=== PATIENT | male | born 1940 | race Caucasian/White ===

== ENCOUNTER 2018-07-11 09:13 | Inpatient (IN) | payer MEDICARE, OTHER ==
[2018-07-11] MEDS ORDERED: Norepinephrine 8 MG/0.9% NS 250 ML ONE (09:34)
[2018-07-11 10:07] LABS: Actual Bicarbonate (HCO3a) 22.6 mEq/L (22-28); Analyzer IN Cardio ER; Base Excess (BEa) -4.4 mEq/L (-2.0 to +3.0); CO2 Tension 50.2 mmHg (35.0-45.0); Carboxyhemoglobin (COHb) 0.3 gm% (0.0-3.0); Hemoglobin (Hb) 10.2 g/dL (14.0-18.0); O2 Tension (PaO2) 70.7 mmHg (> 60.0); Potassium - ABG Lab 3.04 mmol/L (3.70-5.30); pH, Arterial 7.27 (7.35-7.45)
[2018-07-11 10:10] LABS: Puncture Site LB
--- NOTE | 2018-07-11 10:16 | RAD ---
EXAM: CHEST ONE VIEW HISTORY: Pulseless and apneic at 0700 hours at longterm. COMPARISON: None FINDINGS: Endotracheal tube is noted in place with the tip overlying the T4 vertebral body and above the level of the indy. Nasogastric tube is noted in place, but the tube is coiled overlying the upper thoracic esophagus. The tip extends superiorly but is not imaged on this exam. Postsurgical changes related to CABG are noted. Pacing pads overlie the chest. The cardiac silhouette and pulmonary vasculature are within normal limits. There is lucency seen in t he upper lung zones which could be related to bullous emphysematous changes. The lungs otherwise appear clear. No obvious pneumothorax is seen. There is no consolidation or pleural fluid noted. Calcified right paramediastinal and right hilar lymph nodes are seen. Vascular calcifications are see n in the thoracic aorta. The osseous structures are intact. IMPRESSION: 1. No acute cardiopulmonary process. 2. Endotracheal tube noted in place and above the level of the indy. 3. Nasogastric tube noted in place, and the nasogastric tube is coiled overlying the upper esophagus with the the tube extending superiorly, but the tip is not imaged.
--- NOTE | 2018-07-11 10:53 | CT ---
CT BRAIN: DATE: 07/11/2018. PROVIDED CLINICAL HISTORY: Status post cardiac arrest. FINDINGS: No comparisons. The ventricular system appears normal in size and morphology. There is no evidence for intracranial hemorrhage or mass effect. Chronic microvascular ischemic changes are seen involvin g the cerebral white matter. There is ectasia of the basilar artery diffusely. Vascular calcificati ons are seen. A nasogastric tube is partially visualized with what appears to be the tip of the cath eter in the region of the nasopharynx associated with nasopharyngeal fluid density. When correlating with concurrently performed chest radiograph, this appears to represent the terminal extent of the e nteric catheter within the nasopharynx. IMPRESSION: 1. No evidence for intracranial hemorrhage or mass effect. 2. Enteric catheter positioning as above. POS: TPC
--- NOTE | 2018-07-11 10:59 | CT ---
CT CERVICAL SPINE WITHOUT CONTRAST: COMPARISON: None. HISTORY: Ongoing CPR. Found in bed at assisted pulseless and apneic. The patient was intubated. Possibl e traumatic intubation. TECHNIQUE: Multiple contiguous axial images were obtained in a CT of the cervical spine without contrast. Sagit gasper and coronal reformats were performed. FINDINGS: The vertebral bodies demonstrate normal height and alignment without fracture or subluxation. The in tervertebral disks are narrowed with small surrounding osteophytes. No prevertebral soft tissue swel ling is seen. The posterior facets are well aligned. Normal alignment of the skull base with the cervical spine is seen. No prevertebral soft tissue swelling is seen. An NG tube and endotracheal tube are partially visuali zed. IMPRESSION: No evidence of acute osseous abnormality of the cervical spine. POS: TPC
[2018-07-11 11:09] LABS: CKMB 2.9 ng/mL (0-6.6)
[2018-07-11] MEDS: Sodium Chloride 0.9% 1,000 ML IV SCH ×2 (12:00→21:43)
[2018-07-11] MEDS: EPINEPHrine 4 MG in Dextrose 5% in Water 250 ML IV SCH ×3 (12:51→21:47)
[2018-07-11 12:54] VITALS: BMI 16.4
[2018-07-11] MEDS: Norepinephrine 8 MG/0.9% NS 250 ML IVPB SCH ×3 (13:05→21:53)
[2018-07-11 13:33] LABS: Troponin I 0.061 ng/mL (< 0.028)
--- NOTE | 2018-07-11 15:01 | HP ---
PRIMARY CARE PROVIDER: Dr. Bandar Chang. CHIEF COMPLAINT: Unresponsive. HISTORY OF PRESENT ILLNESS: Mr. Bundy is an 78-year-old gentleman, who was seen at [facility] on July 11, 2018, following transfer from emergency room at [place]. He lives in a senior living. He was reportedly found pulseless and apneic at 7: 00 a.m. CPR was performed. He was intubated and sent to the emergency room. The patient is currently unable to provide any history. Some history was obtained from his who was tearful at times. The patient reportedly had coronary artery bypass graft surgery last year and since then has been needing rehabilitation. REVIEW OF SYSTEMS: Could not be completed. PAST MEDICAL HISTORY: Coronary artery bypass graft, pneumothorax, gastroesophageal reflux disease, urinary retention, dyslipidemia, hypertension, asthma, COPD, and peripheral vascular disease. PAST SURGICAL HISTORY: Right hip surgery and coronary artery bypass graft x3. FAMILY HISTORY: Could not be obtained. SOCIAL HISTORY: The patient smokes 2 packs of cigarettes a day. Occasional alcohol use. No recreational drug use. CODE STATUS: The patient's code status was discussed by critical care physician with the patient's . The patient is now DNAR. ALLERGIES: NO KNOWN DRUG ALLERGIES. CURRENT MEDICATIONS: Could not be obtained. PHYSICAL EXAMINATION: GENERAL: On examination, Mr. Bundy is intubated and mechanically ventilated. VITAL SIGNS: Blood pressure is 133/71, pulse 46, respiratory rate 20. Critical temperature is 88.2 degrees Fahrenheit. Oxygen saturation is 99% on ventilator. EYES: No scleral icterus. No conjunctival pallor. ENT: Endotracheal tube present, dry mucosal membranes. NECK: No cervical lymphadenopathy. RESPIRATORY: Muscles of breathing are not active. Chest wall movements are symmetric bilaterally. Lung examination reveals clear lung plasencia bilaterally. CARDIOVASCULAR: S1 and S2 are heard, bradycardic and regular. Peripheral pulses feeble. ABDOMEN: Soft, nontender, bowel sounds heard. NEUROLOGIC: Full neurologic examination was not possible secondary to the patient's noncooperation. Pupils are 5 mm bilaterally, very little response to light. No facial droop. No spontaneous limb movements. MUSCULOSKELETAL: No spontaneous movement of extremities. SKIN: No rashes or subcutaneous nodules. PSYCHIATRIC: Unable to assess mood, affect, or orientation to person, place, or time. LABORATORY DATA: Mr. Bundy's labs and investigations were reviewed. Electrocardiogram shows sinus bradycardia, no ST changes to suggest an acute coronary syndrome. Chest x-ray does not show any pulmonary infiltrates. Noncontrast CT scan of the brain did not show any evidence for intracranial hemorrhage or mass effect. Cervical spine CT did not show evidence of acute osseous abnormality of the cervical spine. Arterial blood gases show pH 7.27, pCO2 of 50, and pO2 of 90. Lactic acid is elevated at 9.3. Troponin I is indeterminate at 0.061. ASSESSMENT AND PLAN: Mr. Bundy was seen at [facility] on July 11, 2018. His problem list includes: 1. Acute respiratory failure: Secondary to cardiac arrest. He is currently intubated and mechanically ventilated. He is also hypothermic and on warming protocol. He will be admitted to the critical care unit. His prognosis is poor. After discussion with pulmonary and critical care physician, his has confirmed his resuscitation status as DNAR. 2. Cardiac arrest: Etiology unclear, could be secondary to coronary artery disease. The patient's is currently awaiting the arrival of children from out of town, at which point the decision will likely be made towards terminal extubation. LEVEL OF RISK: Moderate. LEVEL OF COMPLEXITY: Moderate. Job ID: [id number] MTDD
[2018-07-11] MEDS ORDERED: Levothyroxine 100 MCG SDV IVP SCH (17:00)
[2018-07-11] MEDS ORDERED: Vancomycin HCl 1 GM in Premix Bag 1 BAG IVPB SCH (17:00)
[2018-07-11 18:02] LABS: Free T4 (Free Thyroxine) 1.17 ng/dL (0.70-1.48); Thyroid Stimulating Hormone 7.6338 uIU/mL (0.35-4.94)
--- NOTE | 2018-07-11 18:39 | CON ---
DATE OF CONSULTATION: 07/11/2018 CONSULTING PHYSICIAN: Mark Strong MD REASON FOR CONSULTATION: Critical care management. The following encompassed 70 minutes of critical care time. HISTORY OF PRESENT ILLNESS: The patient is an 78-year-old half-way resident, who was found unresponsive at the half-way today. At 7:40 a.m., he was intubated by EMS staff, given ketamine and rocuronium for that. He was transported to the [facility], where he was stabilized and later flown here by [facility] to [place]. He is currently intubated on mechanical ventilation. He is on Levophed and epinephrine drip. History was obtained from talking to his . PAST MEDICAL HISTORY: 1. Severe COPD. 2. Coronary artery disease, requiring bypass surgery about 8 months ago. 3. Failure to thrive. He basically has never returned home after the bypass surgery and has lost about 50 pounds of weight. 4. Prostatic hypertrophy. PAST SURGICAL HISTORY: Coronary artery bypass grafting surgery. MEDICATIONS: Prior to admission, 1. Acidophilus one tablet 2 times daily. 2. Albuterol nebs every 6 hours as needed. 3. Aluminum hydroxide gel suspension as needed as antacid. 4. Aspirin daily. 5. Atrovent 1 neb orally every 24 hours as needed. 6. Cordarone 200 mg twice daily for atrial fibrillation. 7. Finasteride 5 mg daily. 8. Lipitor 20 mg daily. 9. Marinol 2.5 mg nightly. 10. Melatonin at night for sleep. 11. Metoprolol 25 mg twice daily. 12. Pepcid 20 mg twice daily. 13. Tamsulosin 0.4 mg nightly. 14. Theragran one daily. 15. Numerous p.r.n. medications. SOCIAL HISTORY: Long-term smoker, has not smoked since his surgery last fall. Formally consumed alcohol, but does not do that anymore. Does not use illicit drugs. He is retired. ALLERGIES: NONE. REVIEW OF SYSTEMS: The patient is basically unable to perform any activities of daily living on his own. He has been in the half-way for the last several months. I cannot obtain any review of systems from the patient as he is unresponsive. PHYSICAL EXAMINATION: VITAL SIGNS: Temperature 88.5, pulse 45, blood pressure 115/51, O2 sat 97%, and respiratory rate 20. NEUROLOGIC: This exam was done over 3 hours since he received last paralytic. His pupils are 3 mm, unreactive. He has no gag. He has no withdrawal of pain. He has no spontaneous respirations. Of note, however, this exam was done while his temperature was 88.5 degrees. HEENT: Remarkable for bitemporal wasting. NECK: No adenopathy, JVD or bruits. CARDIAC: S1 and S2, bradycardic, without audible murmur. LUNGS: Clear with a prolonged expiratory phase. ABDOMEN: Soft and nontender. No hepatosplenomegaly. EXTREMITIES: No clubbing, cyanosis or edema. SKIN: Petechiae in his feet region. LABORATORY DATA: ABG, pH 7.27, pCO2 50, pO2 of 70, on SIMV rate of 16, tidal volume 450, PEEP 5, pressure support 10, and FiO2 100%. Sodium 142, potassium 3.9, chloride 113, CO2 of 30, BUN 27, creatinine 1.4, glucose 223, and albumin 2.6. EKG shows sinus bradycardia with AV block. Chest x-ray shows hyperinflation without evidence of mass, effusion or infiltrate. ET tube is in good position. CBC, white blood cell count 11.8, hematocrit 24.8, hemoglobin 8.0, and platelet count 115. CT of the head, I does not see any acute findings. ASSESSMENT: 1. This is an 78-year-old male, who was found unresponsive at the half-way and I suspect he had been in an arrest situation prior to paramedics arriving. It appears by his body temperature that he has been down for quite some time, and they were very jose to have a return of spontaneous circulation. Right now, his neurologic exam shows no brain activity. However, this has to be taken with the knowledge that his temperature is currently 88.5. The reason for the arrest is not clear. It does not appear to be a primary cardiac event. I suspect that it could be chronic obstructive pulmonary disease or some other assault such as ischemic bowel, etc. 2. Underlying severe chronic obstructive pulmonary disease. 3. Acute respiratory failure, requiring mechanical ventilation. PLAN: I spoke with the patient's at the bedside. She was quite realistic in terms of his prognosis. She says that he has been doing extremely poorly ever since his coronary bypass grafting surgery, and she said he is at the point in life or he is practically given up. She understands that he may not rally from this. She did ask me to put DNR on the chart. She is waiting for his children to come. We will support him with epinephrine and norepinephrine for his pulse. We will try to re-warm him to about 96 degrees. DNAR order has been put on the chart. Prognosis is extremely poor. LEVEL OF ACUITY: High. PATIENT STATUS: Critical. EXPECTED OUTCOME: Terminal. Job ID: [id number]
[2018-07-11] MEDS: Cefepime 1 GM in Sodium Chloride 0.9% 100 ML IVPB SCH (21:39)
[2018-07-12] MEDS: EPINEPHrine 4 MG in Dextrose 5% in Water 250 ML IV SCH ×4 (00:12→08:56)
[2018-07-12] MEDS ORDERED: Sodium Chloride 0.9% 500 ML IV SCH (03:15)
[2018-07-12] MEDS: Sodium Chloride 0.9% 1,000 ML IV SCH ×3 (03:17→21:03)
[2018-07-12] MEDS: Norepinephrine 8 MG/0.9% NS 250 ML IVPB SCH ×3 (03:19→15:14)
[2018-07-12 05:56] LABS: Anion Gap 16 mmol/L (10-20); BUN (Urea Nitrogen) 35 mg/dL (8.4-25.7); Calc. Creatinine Clearance 23 mL/min (70-130); Calcium 7.9 mg/dL (7.8-10.44); Carbon Dioxide 18 mmol/L (23-31); Chloride 112 mmol/L (98-107); Estimated GFR-MDRD 31; Glucose 274 mg/dL (83-110); Sodium 143 mmol/L (136-145)
[2018-07-12 06:01] LABS: Potassium 2.5 mmol/L (3.5-5.1)
[2018-07-12 06:07] LABS: Band 26 % (5-11); Hemoglobin 8.1 g/dL (14.0-18.0); Lymphocytes 11 % (21-51); MDiff Complete? YES; Mean Corpuscular HGB CONC 32.7 g/dL (32.0-36.0); Mean Corpuscular Hemoglobin 32.3 pg (27.0-31.0); Metamyelocyte 1 % (0-0); Monocytes 6 % (0-10); Neutrophil 56 % (42-75); Nucleated RBC 1 % (0); Platelet Count 109 thou/uL (130-400); Platelet Morphology Comment Appears Decreased; RBC Distribution Width 12.6 % (11.5-14.5); White Blood Cell (WBC) Count 10.7 thou/uL (4.8-10.8)
[2018-07-12] MEDS ORDERED: Potassium Chloride 40 MEQ in Premix Bag 1 BAG IVPB SCH (06:30)
[2018-07-12] MEDS ORDERED: CCU Electrolyte Replacement 1 EACH FS SCH (07:44)
[2018-07-12] MEDS ORDERED: Dextrose 5% in Water 1,000 ML IV PRN (07:50)
[2018-07-12] MEDS ORDERED: HumaLOG 300 UNITS/3 ML VIAL SC PRN (07:50)
[2018-07-12] MEDS ORDERED: Potassium Phosphate 15 MMOL in Sodium Chloride 0.9% 250 ML 250 ML IV PRN (07:58)
[2018-07-12] MEDS ORDERED: Magnesium 2 GM/50 ML 2 GM in Premix Bag 1 BAG IVPB PRN (07:58)
[2018-07-12] MEDS ORDERED: CCU ELECTROLYTE REPLACEMENT PROTOCOL FS PRN (07:58)
[2018-07-12] MEDS ORDERED: Potassium Chloride 40 MEQ in Premix Bag 1 BAG IVPB PRN (07:58)
[2018-07-12] MEDS ORDERED: Potassium Phosphate 12 MMOL in Sodium Chloride 0.9% 250 ML 250 ML IV PRN (07:58)
[2018-07-12] MEDS ORDERED: Potassium Phosphate 9 MMOL in Sodium Chloride 0.9% 100 ML IVPB PRN (07:58)
[2018-07-12] MEDS ORDERED: Potassium Chloride 40 MEQ in Sodium Chloride 0.9% 250 ML 250 ML IVPB PRN (07:58)
[2018-07-12] MEDS ORDERED: Magnesium Oxide 400 MG TAB PO PRN ×2 (07:58)
[2018-07-12] MEDS ORDERED: PHOS-NAK 1 PKT PACK PO PRN ×2 (07:58)
[2018-07-12] MEDS ORDERED: Potassium Chloride 20 MEQ TAB PO PRN (07:58)
[2018-07-12 07:59] LABS: Actual Bicarbonate (HCO3a) 16.4 mEq/L (22-28); CO2 Tension 42.9 mmHg (35.0-45.0); Calcium, Ionized 1.18 mmol/L (1.12-1.30); Carboxyhemoglobin (COHb) 1.5 gm% (0.0-3.0); Hemoglobin (Hb) 8.5 g/dL (14.0-18.0); Potassium - ABG Lab 2.91 mmol/L (3.70-5.30)
[2018-07-12 08:05] LABS: ALV-art Gradient 471.775 (0-20); Puncture Site LR
[2018-07-12] MEDS ORDERED: Vancomycin HCl 500 MG in Sodium Chloride 0.9% 100 ML IVPB SCH (08:15)
[2018-07-12] MEDS ORDERED: Vancomycin Sliding Scale 1 EACH FS SCH (08:15)
[2018-07-12] MEDS ORDERED: HOLD VANCOMYCIN FOR LEVEL >20 FS SCH (08:15)
[2018-07-12] MEDS ORDERED: Vancomycin HCl 1 GM in Premix Bag 1 BAG IVPB SCH (08:15)
[2018-07-12] MEDS ORDERED: Vancomycin HCl 750 MG in Sodium Chloride 0.9% 250 ML 250 ML IVPB SCH (08:15)
[2018-07-12] MEDS ORDERED: Vancomycin HCl 250 MG in Sodium Chloride 0.9% 100 ML IVPB SCH (08:15)
--- NOTE | 2018-07-12 08:25 | PRG ---
DATE OF SERVICE: 07/12/2018 TIME SPENT: A 45 minutes critical care time. SUBJECTIVE: Shockingly, Mr. Bundy began to wake up yesterday afternoon. This is clearly correlated with improving his body temperature. I was able to speak to his , son, and daughter yesterday. We agreed to give this a little more time. OBJECTIVE: VITAL SIGNS: Current time, temperature is 97.1, pulse 70, and blood pressure 101/67. He is currently requiring epinephrine and norepinephrine drips. He was not able to tolerate any decrease in the epinephrine this morning. HEENT: Eyes open, tracking. He will move his lips and attempt to mouth around the ET tube. NECK: No JVD. LUNGS: Clear, but diminished breath sounds. CARDIAC: S1 and S2. Regular. ABDOMEN: Soft without tenderness. EXTREMITIES: Able to move his feet to command and squeezes his left hand. LABORATORY DATA: Sodium 143, potassium 2.5, chloride 112, CO2 of 18, BUN 35, creatinine 2.06, and glucose 274. TSH yesterday was 7.6, and free T4 of 1.17. White blood cell count 10.7, hematocrit 24.7, platelet count 109, with 56% neutrophils, 26% bands. ABG is pending. ASSESSMENT: 1. Status post cardiopulmonary arrest. 2. Severe hypothermia. 3. Acute respiratory failure requiring mechanical ventilation. 4. Acute renal failure. 5. History of coronary artery disease. 6. Severe hypokalemia. 7. Probable mild hypothyroidism, although this may just be sick euthyroid syndrome. PLAN: 1. We will try to stop the epinephrine and use vasopressin instead. 2. Not weanable at this time. Follow up ABG. Adjust ventilator as necessary. 3. Continue empiric antibiotics for presumed sepsis. 4. Sliding scale insulin for hyperglycemia. 5. Despite his improvement, the patient's prognosis remains dismal and I am not optimistic that he will leave the hospital alive. Job ID: [id number]
[2018-07-12] MEDS ORDERED: Levothyroxine 100 MCG SDV IVP SCH (09:00)
[2018-07-12] MEDS ORDERED: Prevnar 13-Val Conj/PF 0.5 ML SYRINGE IM ONE (09:00)
[2018-07-12] MEDS: Cefepime 1 GM in Sodium Chloride 0.9% 100 ML IVPB SCH (09:36)
[2018-07-12 15:37] LABS: Potassium 4.2 mmol/L (3.5-5.1)
--- NOTE | 2018-07-12 16:18 | PDOC.PN ---
- Subjective Encounter Start Date: 07/12/18 Encounter Start Time: 09:20 Pt seen for followup re: acute respiratory failure. Following some commands. Not answering questions reliably, could not complete ROS. - Objective Resuscitation Status - Order Detail: 07/11/18 11:00 Resuscitation Status Routine Resuscitation Status: DNAR: NO Resuscitation Discussed with: Dr. Cabrera spoke with AMANDA Reviewed: Yes Vital Signs & Weight: Vital Signs (12 hours) Temp Pulse Resp BP Pulse Ox 07/12/18 14:08 81 109/71 07/12/18 14:06 30 H 07/12/18 12:12 30 H 07/12/18 12:00 90 L 07/12/18 10:37 28 H 07/12/18 10:23 73 145/85 H 07/12/18 08:30 26 H 07/12/18 07:25 86 L 07/12/18 07:00 96.8 F L 07/12/18 06:23 69 116/75 07/12/18 06:00 25 H Weight Admit Weight 127 lb 10.362 oz Weight 127 lb 10.362 oz Most Recent Monitor Data Heart Rate from ECG 81 NIBP 109/71 NIBP BP-Mean 83 Respiration from ECG 30 SpO2 96 I&O: 07/11/18 07/12/18 07/13/18 06:59 06:59 06:59 Intake Total 5439 Output Total 400 5 Balance 5039 -5 Result Diagrams: 07/12/18 05:05 07/12/18 14:52 Additional Labs: Accuchecks 07/12/18 12:22 POC Glucose 74 EKG Reviewed by me: Yes (Tele: NSR) Phys Exam - Physical Examination Intubated HEENT: moist MMs ETT Respiratory: clear to auscultation bilateral Cardiovascular: RRR Gastrointestinal: soft Neurological: moves all 4 limbs Psychiatric: normal affect Dx/Plan (1) Acute respiratory failure Code(s): J96.00 - ACUTE RESPIRATORY FAILURE, UNSP W HYPOXIA OR HYPERCAPNIA Status: Acute Qualifiers: Respiratory failure complication: hypoxia Qualified Code(s): J96.01 - Acute respiratory failure with hypoxia Comment: Improving, on vent. Also on empiric antibiotics (2) Hypokalemia Code(s): E87.6 - HYPOKALEMIA Status: Acute Comment: replace potassium (3) AVNI (acute kidney injury) Code(s): N17.9 - ACUTE KIDNEY FAILURE, UNSPECIFIED Status: Acute Comment: creatinine 2.06 today. Continue IV fluids, recheck creatinine (4) CAD (coronary artery disease) Code(s): I25.10 - ATHSCL HEART DISEASE OF [place] CORONARY ARTERY W/O ANG PCTRS Status: Chronic Comment: s/p CABG; indeterminate troponins (5) Cardiac arrest Code(s): I46.9 - CARDIAC ARREST, CAUSE UNSPECIFIED Status: Resolved (6) Hypothermia Code(s): T68.XXXA - HYPOTHERMIA, INITIAL ENCOUNTER Status: Resolved - Plan * . Review of Systems - Medications/Allergies Allergies/Adverse Reactions: Allergies Allergy/AdvReac Type Severity Reaction Status Date / Time No Known Allergies Allergy Unverified 07/11/18 09:40 Medications: Current Medications Dextrose/Water (Dextrose 50%) 25 gm SLOW IVP PRN PRN PRN Reason: Hypoglycemia Glucagon (Glucagon) 1 mg IM PRN PRN PRN Reason: Hypoglycemia Sodium Chloride (Normal Saline 0.9%) 1,000 mls @ 100 mls/hr IV .Q10H JAMILAH Last Admin: 07/12/18 03:17 Dose: 1,000 mls Norepinephrine Bitartrate (Levophed) 250 mls @ 0 mls/hr IVPB INF JAMILAH; Protocol Last Admin: 07/12/18 15:14 Dose: 250 mls Epinephrine 4 mg/ Dextrose/ (Water) 254 mls @ 0 mls/hr IV INF JAMILAH; Protocol Last Admin: 07/12/18 08:56 Dose: 254 mls Cefepime HCl 1 gm/ Sodium (Chloride) 100 mls @ 200 mls/hr IVPB Q12HR JAMILAH Last Admin: 07/12/18 09:36 Dose: 100 mls Dextrose/Water (D5w) 1,000 mls @ 0 mls/hr IV .Q0M PRN PRN Reason: Hypoglycemia Vasopressin 40 unit/ Sodium (Chloride) 102 mls @ 0 mls/hr IV INF JAMILAH; Protocol Potassium Chloride 40 meq/ (Sodium Chloride) 270 mls @ 135 mls/hr IVPB ASDIR PRN PRN Reason: FOR SERUM K+ 2.5 - 3.5 Potassium Chloride 40 meq/ (Device) 100 mls @ 50 mls/hr IVPB ASDIR PRN PRN Reason: FOR SERUM K+ 2.5 - 3.5 Magnesium Sulfate 1 gm/ Sodium (Chloride) 102 mls @ 102 mls/hr IV PRN PRN PRN Reason: MAG LEVEL 1.4 - 2.0 Magnesium Sulfate 2 gm/ Device 50 mls @ 50 mls/hr IVPB ASDIR PRN PRN Reason: MAGNESIUM < 1.4 Potassium Phosphate 9 mmol/ (Sodium Chloride) 103 mls @ 25.75 mls/hr IVPB ASDIR PRN PRN Reason: Phosphate 1.0-1.8 Potassium Phosphate 12 mmol/ (Sodium Chloride) 254 mls @ 63.5 mls/hr IV ASDIR PRN PRN Reason: Serum phosphate 0.5-0.9 Potassium Phosphate 15 mmol/ (Sodium Chloride) 255 mls @ 63.75 mls/hr IV ASDIR PRN PRN Reason: Serum Phos < 0.5 Vancomycin HCl 1 gm/ Device 200 mls @ 200 mls/hr IVPB [facility] Vancomycin HCl 750 mg/ Sodium (Chloride) 250 mls @ 250 mls/hr IVPB [facility] Vancomycin HCl 500 mg/ Sodium (Chloride) 100 mls @ 100 mls/hr IVPB [facility] Vancomycin HCl 250 mg/ Sodium (Chloride) 100 mls @ 100 mls/hr IVPB [facility] Insulin Human Lispro (Humalog) 0 units SC .MODERATE SLIDING SC PRN PRN Reason: Moderate Correctional Scale Levothyroxine Sodium (Synthroid) 100 mcg IVP DAILY [facility] Last Admin: 07/12/18 09:34 Dose: 100 mcg Magnesium Oxide (Magnesium Oxide) 400 mg PO BIDPRN PRN PRN Reason: FOR SERUM MAG 1.4 - 2.0 Magnesium Oxide (Magnesium Oxide) 800 mg PO PRN PRN PRN Reason: FOR SERUM MAG < 1.4 Miscellaneous Medication (Ccu Electrolyte Replacement) 1 each FS ASDIR [facility] Miscellaneous Medication (Pharmacy To Dose) 1 each IVPB ASDIR [facility] Miscellaneous Medication (Phos-Nak) 1 pkt PO TIDPRN PRN PRN Reason: FOR PHOS LEVEL 1.0 - 1.8 Miscellaneous Medication (Phos-Nak) 2 pkt PO TIDPRN PRN PRN Reason: FOR PHOS LEVEL 0.5 - 1.0 Miscellaneous Medication (Vancomycin Sliding Scale) 1 each FS ASDIR [facility] Ccu Electrolyte (Replacement Protocol) 0 each FS PRN PRN PRN Reason: FOR ELECTROLYTE REPLACEMENT Hold Vancomycin For (Level >20) 0 each FS .AT DIALYSIS [facility] Potassium Chloride (K-Dur) 40 meq PO ASDIR PRN PRN Reason: FOR SERUM K+ 2.5 - 3.5 Potassium Chloride (Klor-Con) 40 meq PER TUBE ASDIR PRN PRN Reason: FOR SERUM K+ 2.5-3.5 Sodium Chloride (Flush - Normal Saline) 10 ml IVF Q12HR [facility] Last Admin: 07/12/18 09:35 Dose: 10 ml Sodium Chloride (Flush - Normal Saline) 10 ml IVF PRN PRN PRN Reason: Saline Flush
[2018-07-12 16:27] VITALS: TEMP 97.5
[2018-07-12 16:58] VITALS: BP 75/53
[2018-07-12] MEDS: Dextrose 50% Abboject 50 ML SYRINGE SLOW IVP PRN ×2 (18:25→18:51)
[2018-07-12 19:08] LABS: Vancomycin, Trough 9.9 ug/mL
[2018-07-12] MEDS ORDERED: Dextrose 5 %-0.45 % NaCl 1,000 ML IV SCH (19:15)
--- NOTE | 2018-07-14 20:33 | DIS ---
DATE OF ADMISSION: 07/11/2018 DATE OF DISCHARGE: 07/12/2018 PRIMARY CARE PROVIDER: Dr. Bandar Chang. DATE OF : 07/12/2018. DIAGNOSES: 1. Cardiopulmonary arrest. 2. Hypothermia. 3. Acute respiratory failure. 4. Severe hypokalemia. 5. Acute renal failure. HOSPITAL COURSE: Mr. Bundy is an 78-year-old gentleman, who was admitted to [facility] on 07/11/2018, for cardiopulmonary arrest. He had resuscitation prior to hospitalization and was intubated and mechanically ventilated. He was seen by Pulmonary and Critical Care Medicine, Dr. Cabrera. He was hypothermic at the time of admission. He was also treated with empiric antibiotics and vasopressors. On the morning of 07/12, he appeared to improve, was following some commands. However, around 1645 hours, his oxygen saturation dropped to 86%. Adjustments were made to his ventilator settings. He was unresponsive around 1850 hours. The patient's was contacted and wanted to stop the drips and remove the patient from ventilator to let the patient pass away. At 2057 hours, the patient was pronounced . Many thanks for allowing me to participate in your patient's care. Please feel free to contact me with any questions or concerns. Job ID: [id number]
== END 2018-07-12 20:57 | disposition expired | DRG 208 ==
LOC: ERS 09:13 → CCU 11:00
PROVIDERS: ADMIT Internal Medicine; ATTEND Internal Medicine
PROC: 3E033XZ Introduction of Vasopressor into Peripheral Vein, Percutaneous Approach (ICD-10-PCS; principal; 2018-07-11)
PROC: 5A1935Z Respiratory Ventilation, Less than 24 Consecutive Hours (ICD-10-PCS; 2018-07-11)
PROC: 0BH17EZ Insertion of Endotracheal Airway into Trachea, Via Natural or Artificial Opening (ICD-10-PCS; 2018-07-11)
DX: J96.01 Acute respiratory failure with hypoxia (principal); N17.9 Acute kidney failure, unspecified; Z66 Do not resuscitate; I46.8 Cardiac arrest due to other underlying condition; E87.6 Hypokalemia; I25.10 Atherosclerotic heart disease of native coronary artery without angina pectoris; T68.XXXA Hypothermia, initial encounter; J44.9 Chronic obstructive pulmonary disease, unspecified; F17.210 Nicotine dependence, cigarettes, uncomplicated; K21.9 Gastro-esophageal reflux disease without esophagitis; E78.5 Hyperlipidemia, unspecified; I73.9 Peripheral vascular disease, unspecified; Z95.1 Presence of aortocoronary bypass graft; Z79.899 Other long term (current) drug therapy
CPT/HCPCS: 36415; 36416; 70450; 71045; 72125; 80048; 80202; 81003; 82553; 82805; 83605; 84439; 84443; 84484; 85025; 87040; 87086; 93005; 94002; 94003; J0171; J0692; J3370; J3480; J3490; J7050; J7070